=== PATIENT | female | born 1970 | race Caucasian/White ===

== ENCOUNTER 2022-01-04 10:26 | Outpatient (CLI) | payer OTHER, SELFPAY ==
[2022-01-04 12:39] LABS: Chloride* 102 mmol/L (96-114); Sodium* 138 mmol/L (135-149)
[2022-01-04 12:40] LABS: Potassium* 4.1 mmol/L (3.6-5.1)
[2022-01-04 12:42] LABS: Carbon Dioxide* 30 mmol/L (20-32); Cholesterol* 206 mg/dL (90-199); Creatinine* 0.8 mg/dL (0.5-1.5); Estimated Glomerular Filt Rate 90 ml/min
[2022-01-04 12:43] LABS: Blood Urea Nitrogen* 13 mg/dL (7-30); Calcium* 9.2 mg/dL (8.4-10.6); Glucose* 117 mg/dL (60-115); HDL Cholesterol* 39 mg/dL (>=50); LDL Cholesterol Calculated 121 mg/dL (<100); Triglycerides* 232 mg/dL (40-149)
== END 2022-01-04 10:27 | disposition home or self-care (01) ==
PROVIDERS: PCP Internal Medicine; Visit Provider Internal Medicine
DX: E78.5 Hyperlipidemia, unspecified (principal); I10 Essential (primary) hypertension; R53.81 Other malaise; R53.83 Other fatigue; E66.9 Obesity, unspecified
CPT/HCPCS: 80048; 80061; 84443

== ENCOUNTER 2022-01-08 11:15 | Outpatient (CLI) | payer OTHER, SELFPAY ==
--- NOTE | 2022-01-08 11:30 | CRLHL7_ITS ---
For Patients: As a result of the Century Cures Act, medical imaging exams and procedure reports are released immediately into your electronic medical record. You may view this report before your referring provider. If you have questions, please contact your health care provider. BILATERAL SCREENING MAMMOGRAM WITH COMPUTER-AIDED DETECTION AND TOMOSYNTHESIS TECHNIQUE: CC and MLO views were obtained. These mammographic images have been obtained using full-field digital technique. These mammographic images were interpreted with the benefit of computer-aided detection. Breast Tomosynthesis was used in this interpretation. COMPARISON FILM: 05/30/20, 09/05/16, 04/21/13. FINDINGS: There are scattered areas of fibroglandular density IMPRESSION: There is no radiographic evidence for malignancy. ASSESSMENT: BI-RADS Category 1: Negative RECOMMENDATION: Routine screening mammogram in 1 year. A lay language report of this examination will be provided to the patient. Marcos Rucker M.D. Diagnostic Radiologist [email or web address] KEN/Dictated by: Marcos Rucker MD @ 01/08/2022 12:23:00 PM (Electronically Signed)
== END 2022-01-08 11:16 | disposition home or self-care (01) ==
PROVIDERS: PCP Internal Medicine; Visit Provider Internal Medicine
DX: Z12.31 Encounter for screening mammogram for malignant neoplasm of breast (principal)
CPT/HCPCS: 77063; 77067

== ENCOUNTER 2022-02-20 12:47 | Outpatient (CLI) | payer OTHER, SELFPAY | END 2022-02-20 12:48 | disposition home or self-care (01) | LOC: OP CLINIC 12:48 | PROVIDERS: PCP Internal Medicine; Visit Provider Surgery | DX: R19.5 Other fecal abnormalities (principal); K63.5 Polyp of colon; K62.1 Rectal polyp; K57.30 Diverticulosis of large intestine without perforation or abscess without bleeding | CPT/HCPCS: 45385; 88305; 99153; J1200; J2250; J3010 ==

== ENCOUNTER 2022-03-13 10:32 | Outpatient (CLI) | payer OTHER, SELFPAY ==
[2022-03-13 18:03] LABS: Chloride* 101 mmol/L (96-114); Potassium* 3.9 mmol/L (3.6-5.1); Sodium* 137 mmol/L (135-149)
[2022-03-13 18:05] LABS: Cholesterol* 230 mg/dL (90-199); Creatinine* 0.8 mg/dL (0.5-1.5); Estimated Glomerular Filt Rate 90 ml/min
[2022-03-13 18:06] LABS: Blood Urea Nitrogen* 13 mg/dL (7-30); Carbon Dioxide* 29 mmol/L (20-32); Glucose* 103 mg/dL (60-115); Triglycerides* 174 mg/dL (40-149)
[2022-03-13 18:07] LABS: Calcium* 8.6 mg/dL (8.4-10.6); HDL Cholesterol* 47 mg/dL (>=50); LDL Cholesterol Calculated 148 mg/dL (<100)
== END 2022-03-13 10:33 | disposition home or self-care (01) ==
PROVIDERS: PCP Internal Medicine; Visit Provider Internal Medicine
DX: E78.5 Hyperlipidemia, unspecified (principal); I10 Essential (primary) hypertension; R73.03 Prediabetes; E66.9 Obesity, unspecified
CPT/HCPCS: 80048; 80061

== ENCOUNTER 2022-09-08 15:11 | Outpatient (CLI) | payer OTHER, SELFPAY ==
[2022-09-08 15:41] LABS: Appearance Urine Clear (Clear); Bilirubin Urine Negative (Negative); Blood Urine Negative (Negative); Color Urine Yellow (Yellow); Glucose Urine Negative (Negative); Ketones Urine Negative (Negative); Leukocyte Esterase Urine 1+ (Negative); Nitrite Urine Negative (Negative); Protein Urine Negative (Negative); Specific Gravity Urine <= 1.005 (1.000-1.030); Urobilinogen Urine 0.2 (0.2-1.0); pH Urine 6.5 (5.0-8.5)
[2022-09-08 16:02] LABS: Bacteria Urine Moderate; RBC Urine 0-2 (0-2)
== END 2022-09-08 15:12 | disposition home or self-care (01) ==
PROVIDERS: PCP Internal Medicine; Visit Provider Advanced Practice Midwife
DX: R73.03 Prediabetes (principal); E66.9 Obesity, unspecified; I10 Essential (primary) hypertension; E78.5 Hyperlipidemia, unspecified
CPT/HCPCS: 81003; 81015; 87086; 87186

== ENCOUNTER 2023-06-18 12:20 | Outpatient (CLI) | payer OTHER, SELFPAY | END 2023-06-18 12:21 | disposition home or self-care (01) | PROVIDERS: PCP Internal Medicine; Visit Provider Registered Nurse | DX: Z13.21 Encounter for screening for nutritional disorder (principal); Z13.29 Encounter for screening for other suspected endocrine disorder; Z13.228 Encounter for screening for other metabolic disorders | CPT/HCPCS: 80048; 80061; 82306; 84443; 84450; 84460 ==

== ENCOUNTER 2023-08-08 15:17 | Outpatient (REF) | payer OTHER, SELFPAY ==
[2023-08-08 15:33] LABS: Appearance Urine Clear (Clear); Bilirubin Urine Negative (Negative); Blood Urine Negative (Negative); Color Urine Yellow (Yellow); Glucose Urine Negative (Negative); Ketones Urine Negative (Negative); Leukocyte Esterase Urine Trace (Negative); Nitrite Urine Negative (Negative); Protein Urine Negative (Negative); Urobilinogen Urine 0.2 (0.2-1.0)
[2023-08-08 15:58] LABS: RBC Urine 0-2 (0-2); Squamous Epithelial Cell Urine Few (None-Few); WBC Urine 0-2 (0-5)
== END 2023-08-08 15:18 | disposition home or self-care (01) ==
LOC: LAB 15:17
PROVIDERS: PCP Internal Medicine; Visit Provider Advanced Practice Midwife
DX: Z13.89 Encounter for screening for other disorder (principal)
CPT/HCPCS: 81001; 87086

== ENCOUNTER 2023-09-06 13:17 | Outpatient (CLI) | payer OTHER, SELFPAY ==
--- OUTSIDE RECORDS SUMMARY | 2023-09-06 13:19 | XMS_ITS | Clinical Summary ---
Author Name Unknown Organization [facility] Address [address] [place] [address] Care Team Providers Care Corporate Treasurer Name Role Phone Needs Pcp, Assignment Primary Care Provider [phone] Source Comments You are receiving this document as you are listed as the primary care provider,follow-up provider, or the patient has been referred to you for consultation.This is in compliance with the Medicare andMedicaid EHR Incentive Program,which states Providers who transition their patient to another setting of careor provider of care or refers their patient to another provider of care shouldprovide summary care record for each transition of care or referral. [facility] Allergies No known active allergies Medications Medication Sig Dispensed Refills Start Date End Date Status citalopram (CELEXA) 40 MG tablet Take 1 Tablet (40 mg) by mouth daily. 06/06/2022 Active losartan/hydrochlo rothiazide (HYZAAR) 100-25 MG tablet Take 1 Tablet by mouth daily. 06/06/2022 Active Biotin w/ Vitamins C & E (HAIR/SKIN/NAILS OR) Nature bounty Active Cholecalciferol (VITAMIN D3) 125 MCG (5000 UT) TABS Active Phentermine HCl 37.5 MG capsuleIndications :Obesity (BMI 30-39.9) (C) Take 1 Capsule (37.5 mg) by mouth daily. 90 Capsule 07/25/2023 Active metFORMIN XR (GLUCOPHAGE XR) 500 MG 24 hour release tabletIndications: Prediabetes Week one, take 1 tablet by mouth daily with dinner. Week two, take one tablet with breakfast and one with dinner. Week three, take one tablet with breakfast and two with dinner. Week four and beyond, take two tablets with breakfast and two with dinner. Do not increase dose if having side effects. 310 Tablet 3 07/25/2023 07/24/2024 Active topiramate (TOPAMAX) 25 MG tabletIndications: Obesity (BMI 30-39.9) (HRC) Take 2 Tablets (50 mg) by mouth two times a day. 360 Tablet 1 07/25/2023 07/24/2024 Active semaglutide (OZEMPIC) 2 MG/3ML injectionIndicatio ns:Obesity (BMI 30-39.9) (HRC),Prediabetes Start with 0.25mg once per week for 4 weeks then increase to 0.5mg weekly if tolerating. 6 mL 07/31/2023 Active Active Problems Problem Noted Date Diagnosed Date Prediabetes 08/23/2022 Other hyperlipidemia 08/23/2022 Essential hypertension 08/13/2022 Obesity (BMI 30-39.9) 08/13/2022 Encounters Date Type Department Care Team Description 08/01/2023 Telephone [facility] [address] [place] [address] [employer] [address] [place] [address] Winter Fowler RN Medication Questions (Phentermine to be stopped if Ozempic has been approved. /) 07/09/2023 1:00 PM LASTEX THREAD WINDER E-Visit [facility] [address] [place] [address] [employer] [address] [place] [address] Micaela Yao PA-C Dx: Obesity (BMI 30-39.9) (HRC) 07/08/2023 10:00 AM LASTEX THREAD WINDER E-Visit [facility] [address] [place] [address] [employer] [address] [place] [address] Micaela Yao PA-C Dx: Obesity (BMI 30-39.9) (HR) (Primary Dx) 07/08/2023 9:30 AM LASTEX THREAD WINDER Telemedicine [facility] [address] [place] [address] [employer] [address] [place] [address] Micaela Yao PA-C Prediabetes (Primary Dx); Essential hypertension (HRC); Other hyperlipidemia; Obesity (BMI 30-39.9) (HRC) from Last 3 Months Social History Tobacco Use Types Packs/Day Years Used Date Smoking Tobacco: Never Smokeless Tobacco: Never Tobacco Cessation:Counseling Given: Not Answered Alcohol Use Standard Drinks/Week Comments Yes 0 (1 standard drink = 0.6 oz pure alcohol) 10 drinks at the least up to a case per week Sex and Gender Information Value Date Recorded Sex Assigned at Female 07/08/2023 10:23 AM LASTEX THREAD WINDER Gender Identity Female 07/08/2023 10:23 AM LASTEX THREAD WINDER Sexual Orientation Straight 07/08/2023 10 :23 AM LASTEX THREAD WINDER Last Filed Vital Signs Vital Sign Reading Time Taken Comments Blood Pressure 106/81 07/08/2023 9:36 AM LASTEX THREAD WINDER pt reported Pulse 78 08/13/2022 10:09 AM CDT Temperature - - Respiratory Rate - - Oxygen Saturation - - Inhaled Oxygen Concentration - - Weight 90 kg (198 lb 6.4 oz) 07/08/2023 7:45 AM LASTEX THREAD WINDER Height 161.3 cm (5' 3.5) 07/08/2023 7:45 AM LASTEX THREAD WINDER Body Mass Index 34.59 07/08/2023 7:45 AM LASTEX THREAD WINDER Plan of Treatment Upcoming Encounters Date Type Department Care Team (Late st Contact Info) Description 11/08/2023 11:00 AM CDT Telemedicine [facility] [address] [facility], [address] [place] [address] Hannah Medel MD [facility] [place] [address] Health Maintenance Due Date Last Done Comments Cervical Cancer Screening Due 1971 Colon Cancer Screening Plan Due 1971 Hep C Screening (Preventive Services) 1971 Mammogram 1971 HIV Screening (Preventive Services) 1987 Adult Preventive Visit 1989 HepB (1) 1990 Prediabetes: HGBA1C 08/14/2023 08/13/2022 Cholesterol 08/14/2027 08/13/2022 DTaP/Tdap/Td (2 - Tdap) 02/24/2030 02/25/2020Shingles Completed 06/20/2022, 03/13/2022 COVID-19 Vaccine Completed 02/22/2023, , 03/14/2021, Additional history exists Influenza Completed 02/22/2023, 11/0 05/2021, 03/14/2021, Additional history exists HepA Aged Out No longer eligi ble based on patient's age to complete this topic Hib Aged Out No longer eligi ble based on patient's age to complete this topic IPV (Polio) Aged Out No longer eligi ble based on patient's age to complete this topic MCV4 Aged Out No longer eligi ble based on patient's age to complete this topic Pneumococcal Aged Out No longer eligi ble based on patient's age to complete this topic Procedures Procedure Name Priority Date/Time Associated Diagnosis Comments HGB A1C Routine 08/13/2022 12:25 PM CDT Abnormal weight gain Screening for diabetes mellitus LIPID PANEL & DIRECT LDL (IF NEEDED) Routine 08/13/2022 12:25 PM CDT Screening for lipoid disorders from Last 3 Months or Most Recently Relevant to Health Maintenance Results * (ABNORMAL) Lipid Panel and Direct LDL(If Needed) (08/13/2022 12:25 PM CDT) Cholesterol 204(H) 0 - 199 mg/dL 08/13/2022 1:14 PM CDT [facility] Triglyceride 107 <=149 mg/dL 08/13/2022 1:14 PM CDT [facility] HDL Cholesterol 43 >=40 mg/dL 1:14 PM CDT [facility] LDL, Calculated 140(H) <130 mg/dL 1:14 PM CDT [facility] Non HDL Chol, Calculated 161(H) <=159 mg/dL 08/13/2022 1:14 PM CDT [facility] Cholesterol/HDL Ratio 4.7 08/13/2022 1:14 PM CDT [facility] Hours Fasting 16 08/13/2022 1:14 PM CDT [facility] Blood Venipuncture / Unknown 08/13/2022 12:25 PM CDT 08/13/2022 12:26 PM CDT Micaela Maximilian BUCKNER [facility]_1 [facility] [address] [place], [place] [address] * (ABNORMAL) Hgb A1c (08/13/2022 12:25 PM CDT) Hemoglobin A1C 5.8(H) <=5.6 % 08/13/2022 5:41 PM CDT [facility] Estimated Average Glucose (Calc) 120 < 117 mg/dL 08/13/2022 5:41 PM CDT [facility] Comment:Estimated average gl ucose (eAG) converts A1c into glucose units (mg/dL) and estimates average glucose over the past approximately 3 months. The eAG reference interval (<117 mg/dL) corresponds to an A1c of <5.7%. Blood Venipuncture / Unknown 08/13/2022 12:25 PM CDT 08/13/2022 12:26 PM CDT Narrative [facility] - 08/13/2022 5:41 PM CDT For patients not previously diagnosed with diabetes: 5.7-6.4%: Increased risk for diabetes 6.5% and greater: Diagnostic for diabetes For patients diagnosed with diabetes: <8.0%: Goal of therapy for ages 18-75 Clinicians may recommend a higher or lower goal for specific individuals. Micaela Yao PA-C LAB_1 [facility] [address] [address] [phone] from Last 3 Months or Most Recently Relevant to Health Maintenance Care Teams Corporate Treasurer Relationship Specialty Start Date End Date Needs Pcp, [place] [address] PCP - General 06/14/22
--- OUTSIDE RECORDS SUMMARY | 2023-09-06 13:19 | XMS_ITS | Encounter Summary ---
Author Name Unknown Organization [facility] Address [address] [place] [address] Care Team Providers Care Thermal Spray Operator Name Role Phone Needs Pcp, Assignment Primary Care Provider [phone] Reason for Visit * Reason Comments Medication Questions Phentermine to be s topped if Ozempic has been approved. Encounter Details Date Type Department Care Team (Late st Contact Info) Description 08/01/2023 Telephone [facility] [address] [place] [address] Winter Fowler vice president of instruction Questions (Phentermine to be stopped if Ozempic has been approved. /) Social History Tobacco Use Types Packs/Day Years Used Date Smoking Tobacco: Never Smokeless Tobacco: Never Alcohol Use Standard Drinks/Week Comments Yes 0 (1 standard drink = 0.6 oz pure alcohol) 10 drinks at the least up to a case per week Sex and Gender Information Value Date Recorded Sex Assigned at Female 07/08/2023 10:23 AM HALVER MACHINE OPERATOR Gender Identity Female 07/08/2023 10:23 AM HALVER MACHINE OPERATOR Sexual Orientation Straight 07/08/2023 10 :23 AM HALVER MACHINE OPERATOR documented as of this encounter Nursing Notes * Winter Fowler RN - 08/01/2023 12:56 PM CDT Images from the original note were not included. Received the following message from provider: Micaela Yao PA-C to [facility] 08/01/23 10:00 AM Patient requested refill of phentermine for now while awaiting insurance decision about Ozempic. IfOzempic does get approved, I had discussed with her at last visit about discontinuing phentermine at that time. Pharmacy updated. * Winter Fowler RN - 08/01/2023 9:44 AM CDT Disp Refills Start End Phentermine HCl 37.5 MG capsule 90 Capsule 0 07/25/2023 -- Sig - Route: Take 1 Capsule (37.5 mg) by mouth daily. - Oral Sent to pharmacy as: Phentermine HCl 37.5 MG Oral Capsule Class: E-Prescribing E-Prescribing Status: Transmission to pharmacy failed (07/25/2023 11:25 AM HALVER MACHINE OPERATOR) Contacted pharmacy to relay Rx due to transmission failure. Pharmacist is asking if pt will be taking both Ozempic and Phentermine? Will forward to provider for verification. Plan to notify pharmacy when response has been received. documented in this encounter Plan of Treatment Upcoming Encounters Date Type Department Care Team (Late st Contact Info) Description 11/08/2023 11:00 AM CDT [facility] [address] [facility], [address] [place] [address] Hannah Medel MD [address] [place] [address] documented as of this encounter Visit Diagnoses Not on filedocumented in this encounter Care Teams Thermal Spray Operator Relationship Specialty Start Date End Date Needs Pcp, [place] [address] PCP - General 06/14/22 documented as of this encounter
--- OUTSIDE RECORDS SUMMARY | 2023-09-06 13:19 | XMS_ITS | Encounter Summary ---
Author Name Unknown Organization [facility] Address [address] [place] [address] Care Team Providers Care Bag Valver Name Role Phone Needs Pcp, Assignment Primary Care Provider [phone] Reason for Visit * Reason Comments Follow-up, NOS Entered automaticall y based on patient selection in [employer]. Encounter Details Date Type Department Care Team (Late Contact Info) Description 07/09/2023 1:00 PM NAILHEAD OPERATOR E-Visit [facility] [address] [facility] [address] [place], [place] [id number] Micaela Yao PA-C [address] [place], [place] [id number] Dx: Obesity (BMI 30-39.9) ([facility]) Social History Tobacco Use Types Packs/Day Years Used Date Smoking Tobacco: Never Smokeless Tobacco: Never Alcohol Use Standard Drinks/Week Comments Yes 0 (1 standard drink = 0.6 oz pure alcohol) 10 drinks at the least up to a case per week Sex and Gender Information Value Date Recorded Sex Assigned at Female 07/08/2023 10:23 AM NAILHEAD OPERATOR Gender Identity Female 07/08/2023 10:23 AM NAILHEAD OPERATOR Sexual Orientation Straight 07/08/2023 10 :23 AM NAILHEAD OPERATOR documented as of this encounter Plan of Treatment Upcoming Encounters Date Type Department Care Team (Late Contact Info) Description 11/08/2023 11:00 AM CDT Telemedicine [facility] [address] [facility], [address] [place] [address] Hannah Medel MD [address] [place] [address] documented as of this encounter Visit Diagnoses Diagnosis Obesity (BMI 30-39.9) (HRC) Obesity, unspecified documented in this encounter Care Teams Bag Valver Relationship Specialty Start Date End Date Needs Pcp, [place] [address] PCP - General 06/14/22 documented as of this encounter
--- OUTSIDE RECORDS SUMMARY | 2023-09-06 13:19 | XMS_ITS | Encounter Summary ---
Author Name Unknown Organization [facility] Address [address] [address] Care Team Providers Care Title Officer Name Role Phone Needs Pcp, Assignment Primary Care Provider [phone] Reason for Visit * Reason Comments Video Visit Follow-up Encounter Details Date Type Department Care Team (Late st Contact Info) Description 07/08/2023 9:30 AM STEWARD/STEWARDESS SECOND CLASS Telemedicine [facility] [address] [facility] [address] [place], [place] [id number] Micaela Yao PA-C [address] [place], [place] [id number] Prediabetes (Primary Dx); Essential hypertension (HRC); Other hyperlipidemia; Obesity (BMI 30-39.9) (HRC) Social History Tobacco Use Types Packs/Day Years Used Date Smoking Tobacco: Never Smokeless Tobacco: Never Alcohol Use Standard Drinks/Week Comments Yes 0 (1 standard drink = 0.6 oz pure alcohol) 10 drinks at the least up to a case per week Sex and Gender Information Value Date Recorded Sex Assigned at Female 07/08/2023 10:23 AM STEWARD/STEWARDESS SECOND CLASS Gender Identity Female 07/08/2023 10:23 AM STEWARD/STEWARDESS SECOND CLASS Sexual Orientation Straight 07/08/2023 10 :23 AM STEWARD/STEWARDESS SECOND CLASS documented as of this encounter Last Filed Vital Signs Vital Sign Reading Time Taken Comments Blood Pressure 106/81 07/08/2023 9:36 AM STEWARD/STEWARDESS SECOND CLASS pt reported Pulse - - Temperature - - Respiratory Rate - - Oxygen Saturation - - Inhaled Oxygen Concentration - - Weight 90 kg (198 lb 6.4 oz) 07/08/2023 7:45 AM STEWARD/STEWARDESS SECOND CLASS Height 161.3 cm (5' 3.5) 07/08/2023 7:45 AM STEWARD/STEWARDESS SECOND CLASS Body Mass Index 34.59 07/08/2023 7:45 AM STEWARD/STEWARDESS SECOND CLASS documented in this encounter Progress Notes * Micaela Yao PA-C - 07/08/2023 9:30 AM CST MEDICAL WEIGHT MANAGEMENT PROGRESS NOTE CHIEF COMPLAINT: Larissa Galvan is a 53 y.o. female with chronic medical problems including HTN, obesity, who was referred/seeks to treat the following obesity-associated medical conditions by aggressive management of weight: HTN, weight bearing joint pain Initial consult 08/13/2022 INTERIM HISTORY: Patient on topiramate 50 mg BID, phentermine 37.5 mg daily. She has not lost any weight since last visit. Nutrition: last met with RD 01/2023. Patient has worked on prepping meals more for work, increasing fruits/vegetables. Exercise: walking Patient's weight history is as follows: Bariatric Weight History and Calculations Weight History Age at Onset of Obesity: 36 Highest Adult Weight: 241 lb Preferred Weight: 160 lb Lowest Adult Weight: 141 lb At what weight would you not be disappointed?: 170 lb Starting Weight: 201 lb 1.6 oz Current Weight: 198 lb 6.4 oz Height (in): 63.5 Weight Calculations Excess Weight: 75 lb 13.6 oz Current Weight Loss: 2 lb 11.2 oz Goal Weight: 125 lb 4 oz Starting BMI: 35.14 Percent Exess Weight Loss: 4 Current BMI: 34.67 Percent Totoal Body Weight Loss: 1 WEIGHT HISTORY: Wt Readings from Last 3 Encounters: 07/08/23 198 lb 6.4 oz (51593 g) 02/07/23 194 lb 6.4 oz (49148 g) 10/16/22 197 lb 3.2 oz (43200 g) Weight [facility] Center Assessment: Updating Your Care Team 1. Have you been working on any lifestyle goals since your last visit?: Yes 4. How many hours of sleep to you get per night?: 8-9 hours 7. Do you drink sugar-sweetened beverages (regular soda or sweetened coffee or tea)?: No 8. What would you like to discuss today?: Changing or adding medications Post-surgical information: 5. Does the patient snack?: Pos The patient notes the following snacking habits: Fruits, almonds, sometimes candies (not as much asI used to), cheese/crackers REVIEW OF SYSTEMS: Patient is experiencing the following symptoms/problems: None PAST MEDICAL HISTORY: History reviewed. No pertinent past medical history. CURRENT PROBLEMS: Patient Active Problem List Diagnosis Essential hypertension (HRC) Obesity (BMI 30-39.9) (HRC) Prediabetes Other hyperlipidemia MEDICATIONS: Outpatient Medications Prior to Visit Medication Sig Dispense Refill Biotin w/ Vitamins C & E (HAIR/SKIN/NAILS OR) Nature bounty Cholecalciferol (VITAMIN D3) 125 MCG (5000 UT) TABS citalopram (CELEXA) 40 MG tablet Take 1 Tablet (40 mg) by mouth daily. losartan/hydrochlorothiazide (HYZAAR) 100-25 MG tablet Take 1 Tablet by mouth daily. topiramate (TOPAMAX) 25 MG tablet Take 2 Tablets (50 mg) by mouth two times a day. 180 Tablet 3 Phentermine HCl 37.5 MG capsule Take 1 Capsule (37.5 mg) by mouth daily. 90 Capsule 1 No facility-administered medications prior to visit. ALLERGIES: No Known Allergies SURGICAL HISTORY: Past Surgical History: Procedure Laterality Date ankle Left ANTERIOR CRUCIATE LIGAMENT REPAIR Bilateral ENDOMETRIAL ABLATION LAPAROSCOPIC APPENDECTOMY TUBAL LIGATION FAMILY HISTORY: History reviewed. No pertinent family history. SOCIAL HISTORY: Social History Tobacco Use Smoking status: Never Smokeless tobacco: Never Substance Use Topics Alcohol use: Yes Comment: 10 drinks at the least up to a case per week PHYSICAL EXAM: VITAL SIGNS: BP 106/81 Comment: pt reported Ht 5' 3.5 (161.3 cm) Wt 198 lb 6.4 oz (51947 g) BMI 34.59 kg/m?? Wt Readings from Last 3 Encounters: 07/08/23 198 lb 6.4 oz (25246 g) 02/07/23 194 lb 6.4 oz (01962 g) 10/16/22 197 lb 3.2 oz (09929 g) GENERAL: The patient appears in no acute distress. PSYCHIATRIC: Alert and oriented x 3. Affect is appropriate. Labs: I reviewed the patient's labs and note the following: No new labs available ASSESSMENT/PLAN: We will continue to treat the following obesity-associated medical conditions and conditions exacerbated by or contributing to weight gain by aggressive management of weight: ICD-10-CM 1. Prediabetes R73.03 2. Essential hypertension (HRC) I10 3. Other hyperlipidemia E78.49 4. Obesity (BMI 30-39.9) ([facility]) E66.9 Phentermine HCl 37.5 MG capsule Plan for management includes the following: -Nutrition: Meet with nutrition Yes. -Exercise: Continue working up to 150 minutes of moderate intensity exercise per week. -Medications: Continue phentermine 37.5 mg daily and topiramate 50 mg BID. BP acceptable. Discussed consideration of Zepbound; patient to update new insurance plan with business office. Reviewed metformin as alternative if GLP-1 agonists not covered by insurance plan. -Potential future medications to trial for additional weight loss include the following: Naltrexone, Metformin, Semaglutide, Liraglutide -The following weight-loss medications may not be recommended for this patient: Bupropion (irritability) -Other: n/a Follow up with me: in 4 months. Micaela Yao PA-C Total time: 25 minutes, more than 50% of this time spent [id number] counseling on chronic conditions, lifestyle interventions for management, prescription drug management of both current and possible medications for future use (including expectations for weight loss, side effects, and off-label use in some cases). This visit was conducted via video. Location of clinician: clinic. Location of patient: other building. At the beginning of the visit, I discussed with the patient/parent that this visit is a telehealth visit that will be billed to their insurance. I reviewed potential benefits, risks, and confidentiality of telehealth visits. explained that the appropriateness of telehealth visits is determined by the provider and that patient may need to be seen in clinic in the future. They consented to proceed. ARD/STEWARDESS SECOND CLASS documented in this encounter Nursing Notes * Reyna Ordonez RN - 07/08/2023 9:30 AM CST Patient has completed mobile check in process. Last seen on 02/07/23 with recorded weight of 194 lbs. Weight History: Bariatric Weight History and Calculations Weight History Age at Onset of Obesity: 36 Highest Adult Weight: 241 lb Preferred Weight: 160 lb Lowest Adult Weight: 141 lb At what weight would you not be disappointed?: 170 lb Starting Weight: 201 lb 1.6 oz Current Weight: 198 lb 6.4 oz Height (in): 63.5 Weight Calculations Excess Weight: 75 lb 13.6 oz Current Weight Loss: 2 lb 11.2 oz Goal Weight: 125 lb 4 oz Starting BMI: 35.14 Percent Exess Weight Loss: 4 Current BMI: 34.67 Percent Totoal Body Weight Loss: 1 Measurements Do you have a scale? YES - 198.4 lb. Do you have a BP cuff? NO Eating patterns Patient is experiencing the following symptoms/problems: None Medications: not reviewed. Compliance: YES Side effects: NO Patient would like to discuss: Changing or adding medications Reyna Ordonez, RN 7:45 AM 07/08/2023 ARD/STEWARDESS SECOND CLASS documented in this encounter Plan of Treatment Upcoming Encounters Date Type Department Care Team (Late st Contact Info) Description 11/08/2023 11:00 AM CDT Telemedicine [facility] [address] [facility], [address] [place] [address] Hannah Medel MD [address] [place] [address] documented as of this encounter Visit Diagnoses Diagnosis Prediabetes- Primary Other abnormal glucose Essential hypertension (HRC) Unspecified essential hypertension Other hyperlipidemia Obesity (BMI 30-39.9) (HRC) Obesity, unspecified documented in this encounter Care Teams Title Officer Relationship Specialty Start Date End [place] [address] PCP - General 06/14/22 documented as of this encounter
--- OUTSIDE RECORDS SUMMARY | 2023-09-06 13:19 | XMS_ITS | Encounter Summary ---
Author Name Unknown Organization [facility] Address [address] [place] [address] Care Team Providers Care Test Engineering Technician Name Role Phone Needs Pcp, Assignment Primary Care Provider [phone] Reason for Referral * Medication Prior Authorization - Closed Specialty Diagnoses / Procedures Referred By Contac t Referred To Contact Diagnoses Obesity (BMI 30-39.9) (HRC) Prediabetes Joellen Yao PA-C [address] [place] [address] Referral ID Status Reason Start Date Expiration Date Visits Re quested Visits Authorized [id number] Closed 1 1 Reason for Visit * Reason Comments QUESTIONS, GENERAL Entered automaticall y based on patient selection in [employer]. Medication Questions Pharmacy requests v erification pt is to be taking both phentermine and Ozempic same time Encounter Details Date Type Department Care Team (Late st Contact Info) Description 07/08/2023 10:00 AM BOARD CERTIFIED ARTS THERAPIST E-Visit [facility] [address] [place] [address] Joellen Yao PA-C [address] [place], [place] [phone] Dx: Obesity (BMI 30-39.9) (HRC) (Primary Dx) Social History Tobacco Use Types Packs/Day Years Used Date Smoking Tobacco: Never Smokeless Tobacco: Never Alcohol Use Standard Drinks/Week Comments Yes 0 (1 standard drink = 0.6 oz pure alcohol) 10 drinks at the least up to a case per week Sex and Gender Information Value Date Recorded Sex Assigned at Female 07/08/2023 10:23 AM BOARD CERTIFIED ARTS THERAPIST Gender Identity Female 07/08/2023 10:23 AM BOARD CERTIFIED ARTS THERAPIST Sexual Orientation Straight 07/08/2023 10 :23 AM BOARD CERTIFIED ARTS THERAPIST documented as of this encounter Progress Notes * Joellen Yao PA-C - 07/31/2023 1:28 PM CDTAddended by: JOELLEN YAO on: 07/31/2023 01:28 PM Modules accepted: Orders * Joellen Yao PA-C - 07/25/2023 11:27 AM CSTAddended by: JOELLEN YAO on: 07/25/2023 11:27 AM Modules accepted: Orders D CERTIFIED ARTS THERAPIST documented in this encounter Nursing Notes * Winter Fowler RN - 08/01/2023 9:49 AM CDT Disp Refills Start End Phentermine HCl 37.5 MG capsule 90 Capsule 0 07/25/2023 -- Sig - Route: Take 1 Capsule (37.5 mg) by mouth daily. - Oral Sent to pharmacy as: Phentermine HCl 37.5 MG Oral Capsule Class: E-Prescribing E-Prescribing Status: Transmission to pharmacy failed (07/25/2023 11:25 AM BOARD CERTIFIED ARTS THERAPIST) Noted transmission to pharmacy error. Contacted pharmacy to verify receipt of Rx and he stated a Rxfor phentermine was called in yesterday. Pharmacy is asking of pt is to be taking both Ozempic and phentermine currently? Will forward to provider and await verification. Plan to notify pharmacy when response has been received. Winter Fowler RN 9:50 AM 08/01/2023. documented in this encounter Plan of Treatment Upcoming Encounters Date Type Department Care Team (Late st Contact Info) Description 11/08/2023 11:00 AM CDT Telemedicine [facility] [address], [address] [place] [address] Hannah Medel MD [address] [place] [address] documented as of this encounter Visit Diagnoses Diagnosis Obesity (BMI 30-39.9) ([facility])- Primary Obesity, unspecified Prediabetes Other abnormal glucose documented in this encounter Care Teams Test Engineering Technician Relationship Specialty Start Date End Date Needs Pcp, [place] [address] PCP - General 06/14/22 documented as of this encounter
--- NOTE | 2023-09-06 13:20 | MM_ITS ---
Patient: VICENTA ROJAS Facility:?[facility] Patient ID:?[id number] Site Patient ID:?[id number]. Site :?[id number] Study:?XRay-Breast Bilateral 3D W/CAD-09/06/2023 1:47:25 PM Ordering Physician:Gaby Tran Final Report: BILATERAL SCREENING MAMMOGRAM WITH COMPUTER-AIDED DETECTION AND TOMOSYNTHESIS TECHNIQUE: CC and MLO views were obtained. These mammographic images have been obtained using full-field digital technique. These mammographic images were interpreted with the benefit of computer-aided detection. Breast tomosynthesis was used in this interpretation. COMPARISON FILM: 01/08/22, 05/30/20, 09/05/16. FINDINGS: There are scattered areas of fibroglandular density. IMPRESSION: There is no radiographic evidence for malignancy. ASSESSMENT: BI-RADS Category 1: Negative RECOMMENDATION: Routine screening mammogram in 1 year. A lay language report of this examination will be provided to the patient. ARUNA HUNT M.D. Diagnostic Radiologist [email or web address] TEDDY/hoda D& Transcribed: 3:[address]/Dictated by: Aruna Hunt MD @ 09/10/2023 12:24:00 PM Signed by:?Aruna Hunt MD @09/10/2023 9:34:02 PM (Electronic Signature)
== END 2023-09-06 13:18 | disposition home or self-care (01) ==
LOC: MAMMO 13:17
PROVIDERS: PCP Internal Medicine; Visit Provider Internal Medicine
DX: Z12.31 Encounter for screening mammogram for malignant neoplasm of breast (principal)
CPT/HCPCS: 77063; 77067

== ENCOUNTER 2024-05-19 09:16 | Outpatient (CLI) | payer OTHER, SELFPAY | END 2024-05-19 09:17 | disposition home or self-care (01) | PROVIDERS: PCP Internal Medicine; Visit Provider Internal Medicine | DX: E78.5 Hyperlipidemia, unspecified (principal); I10 Essential (primary) hypertension; R73.03 Prediabetes | CPT/HCPCS: 80048; 80061 ==

== ENCOUNTER 2024-10-30 10:08 | Outpatient (CLI) | payer OTHER, SELFPAY ==
--- NOTE | 2024-10-30 10:15 | CRLHL7_ITS ---
For Patients: As a result of the Century Cures Act, medical imaging exams and procedure reports are released immediately into your electronic medical record. You may view this report before your referring provider. If you have questions, please contact your health care provider. INDICATION: BILATERAL SCREENING MAMMOGRAM, ASYMPTOMATIC 54 Y/O FEMALE COMPARISON: 09/06/2023, 01/08/2022, 05/30/2020 TECHNIQUE: Digital mammogram in CC and MLO projections including computer-aided detection (CAD) and tomosynthesis. BREAST COMPOSITION: There are scattered areas of fibroglandular density. FINDINGS: No suspicious findings. ASSESSMENT: BI-RADS 1 Negative RECOMMENDATION: Annual screening mammogram. A lay language report of this examination will be provided to the patient. Dictated by: Marcos Rucker MD @ 10/30/2024 10:40:02 (Electronically Signed)
== END 2024-10-30 10:09 | disposition home or self-care (01) ==
LOC: MAMMO 10:08
PROVIDERS: PCP Internal Medicine; Visit Provider Internal Medicine
DX: Z12.31 Encounter for screening mammogram for malignant neoplasm of breast (principal)
CPT/HCPCS: 77063; 77067

== ENCOUNTER 2025-01-28 10:57 | Outpatient (CLI) | payer OTHER, SELFPAY ==
[2025-01-28 11:26] LABS: Appearance Urine Cloudy (Clear)
== END 2025-01-28 10:58 | disposition home or self-care (01) ==
PROVIDERS: PCP Internal Medicine; Visit Provider Obstetrics & Gynecology
DX: N39.0 Urinary tract infection, site not specified (principal)
CPT/HCPCS: 81001; 81003; 87086; 87186

== ENCOUNTER 2025-05-06 13:03 | Outpatient (CLI) | payer OTHER, SELFPAY ==
--- NOTE | 2025-05-06 14:23 | P.ANES_ITS ---
Anesthesia Charges Start Date/Time Anesthesia Start Date: 05/06/25 Anesthesia Start Time: 13:45 Stop Date/Time Anesthesia Stop Date: 05/06/25 Anesthesia Stop Time: 14:17 Coding CPT Codes CPT Codes: TSANTONS LWR INTST NDSC NOS - 86127 ([id number]) P2 - PATIENT W/MILD SYST DISEASE, QZ - PARTS DRIVER SVC W/O ENDORSEMENT CLERK BY
--- NOTE | 2025-05-06 14:23 | W.ANESCHARGE ---
Anesthesia Charges Start Date/Time Anesthesia Start Date: 05/06/25 Anesthesia Start Time: 13:45 Stop Date/Time Anesthesia Stop Date: 05/06/25 Anesthesia Stop Time: 14:17 Coding CPT Codes CPT Codes: STANTONS LWR INTST NDSC NOS - 53715 ([id number]) P2 - PATIENT W/MILD SYST DISEASE, QZ - SPECIMEN TRANSPORTER SVC W/O CABINETMAKER SUPERVISOR BY
== END 2025-05-06 13:04 | disposition home or self-care (01) ==
LOC: OP CLINIC 13:04
PROVIDERS: PCP Internal Medicine; Visit Provider Surgery
DX: D12.3 Benign neoplasm of transverse colon (principal); Z86.0100 Personal history of colon polyps, unspecified
CPT/HCPCS: 00811; 45385; J2704

== ENCOUNTER 2025-05-12 10:28 | Outpatient (CLI) | payer OTHER, SELFPAY | END 2025-05-12 10:29 | disposition home or self-care (01) | LOC: NFLDREF 05-17 10:31 | PROVIDERS: PCP Internal Medicine; Referring Provider Internal Medicine; Visit Provider Physician Assistant Medical | DX: N39.0 Urinary tract infection, site not specified (principal); B96.20 Unspecified Escherichia coli [E. coli] as the cause of diseases classified elsewhere | CPT/HCPCS: 87086 ==